=== PATIENT | female | born 1960 | race Caucasian/White ===

== ENCOUNTER 2023-01-25 20:44 | Emergency (ER) | payer MEDICAID ==
[~2023-01-25] VITALS: Ht 172.7 cm; Wt 108.9 kg
[2023-01-25 20:52] VITALS: BP 150/99
--- NOTE | 2023-01-25 20:55 | NUR ---
COVID-19 and flu swabs collected and sent to lab.
--- NOTE | 2023-01-25 21:19 | NUR ---
Patient taken to X-ray via WC.
--- NOTE | 2023-01-25 22:06 | NUR ---
Dr. Pratt examining patient.
[2023-01-25] MEDS ORDERED: LEVALBUTEROL 1.25 MG/0.5 ML NEBU INH ONE ×5 (22:10→23:00)
--- NOTE | 2023-01-25 22:30 | NUR ---
RT at chair C for breathing treatment.
[2023-01-25] MEDS ORDERED: ALBU0.0912 INH (22:45)
[2023-01-25] MEDS ORDERED: PRON INH (22:45)
[2023-01-25] MEDS ORDERED: ROBAC PO (22:45)
[2023-01-25] MEDS ORDERED: DOXY-690 PO (22:47)
[2023-01-25] MEDS ORDERED: guaiFENesin 600 MG TABER PO SCH (23:00)
[2023-01-25 23:45] VITALS: BP 144/90
--- NOTE | 2023-01-25 23:45 | NUR ---
Patient discharged with v/s stable. Written and verbal after care instructions given and explained. Patient alert, oriented and verbalized understanding of instructions. Wheel Chair Assisted with to car. All questions addressed prior to discharge. ID band removed. Patient advised to follow up with PMD. Rx of Proventil HFA, Doxycycline, Albuterol and Guaifenesi-Codeine given. Patient educated on indication of medication including possible reaction and side effects. Opportunity to ask questions provided and answered.
== END 2023-01-25 23:45 | disposition home or self-care (01) ==
LOC: MED 20:44
DX: J40 Bronchitis, not specified as acute or chronic (principal); Z20.822 Contact with and (suspected) exposure to COVID-19; I10 Essential (primary) hypertension; Z79.899 Other long term (current) drug therapy
CPT/HCPCS: 71045; 87426; 87804; 94640; 99285; J7612; Q0092

== ENCOUNTER 2023-10-27 14:52 | Inpatient (IN) | payer MEDICAID ==
[~2023-10-27] VITALS: Ht 165.1 cm
[~2023-10-27 14:52] MED LIST: ALBU0.0912 INH; DOXY-690 PO; PRON INH; ROBAC PO
[2023-10-27 14:55] VITALS: BP 138/94; PULSE 120; RESP 24; TEMP 98.1; O2SAT 98
[2023-10-27] MEDS ORDERED: NACL 0.9% 1,000 ML IV ONE (15:30)
[2023-10-27] MEDS ORDERED: IPRATROPIUM 0.02% 0.5 MG/2.5 ML NEBU INH ONE (15:35)
[2023-10-27] MEDS ORDERED: ALBUTEROL 0.083% 2.5 MG/3 ML NEBU INH ONE (15:35)
[2023-10-27 15:41] VITALS: PULSE 129; RESP 24; O2SAT 95
[2023-10-27 16:45] LABS: BASOPHILS % (AUTO) 0.2 % (0.0-2.0); EOSINOPHILS % (AUTO) 0.1 % (0.0-4.0); HEMATOCRIT 39.7 % (36-48); LYMPHOCYTES # (AUTO) 0.4 K/uL (2.5-16.5); LYMPHOCYTES % (AUTO) 2.4 % (20.5-51.1); MEAN CORPUSCULAR HEMOGLOBIN 28 pg (27-31); MEAN CORPUSCULAR HGB CONC 33 g/dL (33-37); MEAN CORPUSCULAR VOLUME 84.4 fL (80-94); MONOCYTES # (AUTO) 0.7 K/uL (0.8-1.0); MONOCYTES % (AUTO) 4.3 % (1.7-9.3); NEUTROPHILS # (AUTO) 14.4 K/uL (1.8-7.7); PLATELET COUNT (AUTO) 360 K/uL (140-450); RED BLOOD CELL COUNT(AUTO) 4.71 MIL/uL (4.20-5.40); RED CELL DISTRIBUTION WIDTH 14.2 % (11.6-13.7); WHITE BLOOD COUNT (AUTO) 15.5 K/uL (4.8-10.8)
[2023-10-27] MEDS ORDERED: PIPERACILLIN/TAZOBACTAM 3.375 GM in DEXTROSE 5% 50 ML IV ONE (16:50)
[2023-10-27 17:08] LABS: CREATINE KINASE, TOTAL 307 U/L (26-192); LACTIC ACID 0.4 mmol/L (0.4-2.0)
[2023-10-27] MEDS ORDERED: FUROSEMIDE 40 MG/4 ML VIAL IVP SCH (17:15)
[2023-10-27 17:17] LABS: ALBUMIN 2.9 g/dL (3.4-5.0); ANION GAP 5.7 (8-16); CALCIUM 9.5 mg/dL (8.5-10.1); CARBON DIOXIDE 40.7 mmol/L (21-32); CREATININE 0.4 mg/dL (0.6-1.3); POTASSIUM 3.4 mmol/L (3.5-5.1); TOTAL BILIRUBIN 0.5 mg/dL (0.0-1.0); TOTAL PROTEIN, SERUM 8.1 g/dL (6.4-8.2)
[2023-10-27] MEDS ORDERED: PIPERACILLIN/TAZOBACTAM 3.375 GM VIAL IV ONE (18:26)
[2023-10-27] MEDS ORDERED: LORazepam 0.5 MG TAB PO ONE (18:45)
[2023-10-27] MEDS ORDERED: LORazepam 2 MG/ML VIAL IVP ONE (18:50)
[2023-10-27 19:56] VITALS: O2SAT 98
[2023-10-27 19:57] VITALS: BP 123/80; PULSE 122; O2SAT 99
[2023-10-27 20:06] LABS: APPEARANCE,URINE CLEAR (CLEAR); BILIRUBIN,URINE NEGATIVE (NEGATIVE); BLOOD, URINE NEGATIVE (NEGATIVE); COLOR,URINE YELLOW (YELLOW); LEUKOCYTE ESTERASE ,URINE NEGATIVE (NEGATIVE); NITRITE, URINE NEGATIVE (NEGATIVE); PROTEIN,URINE NEGATIVE (NEGATIVE); UGLUCOSE NEGATIVE (NEGATIVE)
[2023-10-27 21:11] LABS: FLU A ANTIGEN negative (NEGATIVE); FLU B ANTIGEN NEGATIVE (NEGATIVE)
[2023-10-27] MEDS ORDERED: IBUP-2213 PO (21:15)
[2023-10-27] MEDS ORDERED: CEFP200T20 PO (21:15)
[2023-10-27] MEDS ORDERED: METH-1681 PO (21:15)
[2023-10-27] MEDS ORDERED: POTASSIUM CHLORIDE 10 MEQ TABER PO PRN (23:05)
[2023-10-27] MEDS ORDERED: HYDROcodone/APAP 5/325 MG 1 TAB TAB PO PRN (23:05)
[2023-10-27] MEDS ORDERED: MAG SULF 2000 MG/WATER PREMIX 50 ML IV PRN (23:05)
[2023-10-28] VITALS (9 sets, daily range): BP systolic 105–137; BP diastolic 66–79; PULSE 110–132; RESP 16–28; TEMP 97–97.7; O2SAT 89–100
[2023-10-28] MEDS ORDERED: PIPERACILLIN/TAZOBACTAM 3.375 GM in DEXTROSE 5% 50 ML IV SCH ×2
[2023-10-28] MEDS ORDERED: ACETYLCYSTEINE 20% (200 MG/ML) 200 MG/ML VIAL INH ONE
[2023-10-28] MEDS: PIPERACILLIN/TAZOBACTAM 3.375 GM in DEXTROSE 5% 50 ML IV SCH ×5 (00:05→23:53)
[2023-10-28] MEDS ORDERED: PIPERACILLIN/TAZOBACTAM 3.375 GM VIAL IV ONE ×2 (00:21→06:03)
[2023-10-28 06:45] LABS: BASOPHILS % (AUTO) 0.2 % (0.0-2.0); EOSINOPHILS % (AUTO) 0.1 % (0.0-4.0); HEMATOCRIT 36.5 % (36-48); HEMOGLOBIN 11.7 g/dL (12.0-16.0); LYMPHOCYTES # (AUTO) 0.5 K/uL (2.5-16.5); LYMPHOCYTES % (AUTO) 3.6 % (20.5-51.1); MEAN CORPUSCULAR HEMOGLOBIN 27 pg (27-31); MEAN CORPUSCULAR HGB CONC 32 g/dL (33-37); MEAN CORPUSCULAR VOLUME 85.1 fL (80-94); MONOCYTES # (AUTO) 0.9 K/uL (0.8-1.0); MONOCYTES % (AUTO) 6.9 % (1.7-9.3); NEUTROPHILS # (AUTO) 11.5 K/uL (1.8-7.7); NEUTROPHILS % (AUTO) 89.2 % (42.2-75.2); PLATELET COUNT (AUTO) 335 K/uL (140-450); RED BLOOD CELL COUNT(AUTO) 4.29 MIL/uL (4.20-5.40); RED CELL DISTRIBUTION WIDTH 13.7 % (11.6-13.7); WHITE BLOOD COUNT (AUTO) 12.9 K/uL (4.8-10.8)
[2023-10-28] MEDS: ALBUTEROL SULFATE/IPRATROPIU 3 ML SOL IH SCH ×3 (07:25→20:47)
[2023-10-28 07:26] LABS: ALBUMIN 2.5 g/dL (3.4-5.0); ANION GAP 8.1 (8-16); CALCIUM 9.1 mg/dL (8.5-10.1); CREATININE 0.4 mg/dL (0.6-1.3); MAGNESIUM 1.7 mg/dL (1.8-2.4); POTASSIUM 3.3 mmol/L (3.5-5.1); TOTAL BILIRUBIN 0.5 mg/dL (0.0-1.0); TOTAL PROTEIN, SERUM 7.3 g/dL (6.4-8.2)
[2023-10-28 07:34] LABS: CARBON DIOXIDE 42.2 mmol/L (21-32)
[2023-10-28] MEDS: FAMOTIDINE 20 MG/2 ML VIAL IV SCH ×2 (09:39→20:43)
[2023-10-28] MEDS: MORPHINE SULFATE 4 MG/ML SYR IVP PRN (09:41)
[2023-10-28] MEDS ORDERED: LORazepam 2 MG/ML VIAL IVP PRN (11:35)
[2023-10-28] MEDS ORDERED: CRUSHER, PILL MC ONE (11:40)
[2023-10-28] MEDS ORDERED: POTASSIUM CHLORIDE 20% 40 MEQ/15 ML UDC PO SCH (12:00)
[2023-10-28] MEDS: MAGNESIUM OXIDE 400 MG TAB PO PRN (15:28)
[2023-10-28] MEDS: DEXT 5% /NACL 0.9% 1,000 ML IV SCH (16:38)
[2023-10-28] MEDS: LORazepam 0.5 MG TAB PO PRN (23:32)
[2023-10-29] VITALS (15 sets, daily range): BP systolic 102–127; BP diastolic 70–89; PULSE 110–132; RESP 18–34; TEMP 96.7–98.2; O2SAT 94–100
[2023-10-29] MEDS: MORPHINE SULFATE 4 MG/ML SYR IVP PRN (00:17)
[2023-10-29] MEDS: ALBUTEROL SULFATE/IPRATROPIU 3 ML SOL IH SCH ×4 (02:17→19:45)
[2023-10-29] MEDS: DEXT 5% /NACL 0.9% 1,000 ML IV SCH (05:10)
[2023-10-29] MEDS: PIPERACILLIN/TAZOBACTAM 3.375 GM in DEXTROSE 5% 50 ML IV SCH ×4 (05:14→23:16)
[2023-10-29 05:55] LABS: BASOPHILS # (AUTO) 0.1 K/uL (0.00-0.22); BASOPHILS % (AUTO) 0.5 % (0.0-2.0); EOSINOPHILS % (AUTO) 0.1 % (0.0-4.0); HEMATOCRIT 41.3 % (36-48); HEMOGLOBIN 13.4 g/dL (12.0-16.0); LYMPHOCYTES # (AUTO) 0.1 K/uL (2.5-16.5); LYMPHOCYTES % (AUTO) 0.7 % (20.5-51.1); MEAN CORPUSCULAR HEMOGLOBIN 28 pg (27-31); MEAN CORPUSCULAR HGB CONC 33 g/dL (33-37); MONOCYTES # (AUTO) 0.6 K/uL (0.8-1.0); MONOCYTES % (AUTO) 3.5 % (1.7-9.3); NEUTROPHILS % (AUTO) 95.2 % (42.2-75.2); PLATELET COUNT (AUTO) 405 K/uL (140-450); RED CELL DISTRIBUTION WIDTH 13.7 % (11.6-13.7); WHITE BLOOD COUNT (AUTO) 17.8 K/uL (4.8-10.8)
[2023-10-29 06:48] LABS: ALBUMIN 2.7 g/dL (3.4-5.0); ANION GAP 10.9 (8-16); CALCIUM 9.8 mg/dL (8.5-10.1); CREATININE 0.6 mg/dL (0.6-1.3); POTASSIUM 4.1 mmol/L (3.5-5.1); TOTAL BILIRUBIN 0.6 mg/dL (0.0-1.0); TOTAL PROTEIN, SERUM 8.3 g/dL (6.4-8.2)
[2023-10-29 06:52] LABS: CARBON DIOXIDE 40.2 mmol/L (21-32)
[2023-10-29] MEDS: FAMOTIDINE 20 MG/2 ML VIAL IV SCH ×2 (09:33→21:10)
[2023-10-29] MEDS ORDERED: FOAM DRESSING TP PRN (10:40)
[2023-10-29] MEDS ORDERED: THERAHONEY GEL 42.5 GM TP PRN (10:40)
[2023-10-29] MEDS: FOAM DRESSING TP SCH (12:08)
[2023-10-29] MEDS: HYDRAGUARD CREAM TP SCH (12:09)
[2023-10-29] MEDS: THERAHONEY GEL 42.5 GM TP SCH (12:09)
[2023-10-29] MEDS ORDERED: FUROSEMIDE 40 MG/4 ML VIAL IVP SCH (14:19)
[2023-10-29] MEDS ORDERED: VANCOMYCIN PER PHARMACY MC PRN (14:45)
[2023-10-29] MEDS: VANCOMYCIN 750 MG in DEXTROSE 5% 250 ML IV SCH (16:00)
[2023-10-29] MEDS: FUROSEMIDE 20 MG/2 ML VIAL IVP SCH (21:09)
[2023-10-29] MEDS: acetaZOLAMIDE sodium 250 MG in NACL 0.9% 50 ML IV SCH (21:40)
[2023-10-30] VITALS (13 sets, daily range): BP systolic 104–110; BP diastolic 69–78; PULSE 29–135; RESP 18–38; TEMP 97.1–98; O2SAT 94–100
[2023-10-30] MEDS: HYDRAGUARD CREAM TP SCH ×2 (01:49→13:00)
[2023-10-30] MEDS: ALBUTEROL SULFATE/IPRATROPIU 3 ML SOL IH SCH ×4 (02:27→19:23)
[2023-10-30] MEDS: VANCOMYCIN 750 MG in DEXTROSE 5% 250 ML IV SCH ×2 (03:53→16:45)
[2023-10-30] MEDS: acetaZOLAMIDE sodium 250 MG in NACL 0.9% 50 ML IV SCH ×3 (05:21→20:35)
[2023-10-30] MEDS: PIPERACILLIN/TAZOBACTAM 3.375 GM in DEXTROSE 5% 50 ML IV SCH ×4 (06:16→23:50)
[2023-10-30 07:23] LABS: HEMATOCRIT 39.5 % (36-48); HEMOGLOBIN 12.2 g/dL (12.0-16.0); MEAN CORPUSCULAR HEMOGLOBIN 27 pg (27-31); MEAN CORPUSCULAR HGB CONC 31 g/dL (33-37); MEAN CORPUSCULAR VOLUME 87.6 fL (80-94); PLATELET COUNT (AUTO) 340 K/uL (140-450); RED BLOOD CELL COUNT(AUTO) 4.51 MIL/uL (4.20-5.40); RED CELL DISTRIBUTION WIDTH 13.9 % (11.6-13.7); WHITE BLOOD COUNT (AUTO) 24.8 K/uL (4.8-10.8)
[2023-10-30] MEDS: FAMOTIDINE 20 MG/2 ML VIAL IV SCH ×2 (08:31→20:34)
[2023-10-30] MEDS: FUROSEMIDE 20 MG/2 ML VIAL IVP SCH ×2 (08:31→20:34)
[2023-10-30 08:43] LABS: ALBUMIN 2.4 g/dL (3.4-5.0); CALCIUM 9.4 mg/dL (8.5-10.1); CREATININE 0.6 mg/dL (0.6-1.3); MAGNESIUM 1.8 mg/dL (1.8-2.4); TOTAL BILIRUBIN 0.5 mg/dL (0.0-1.0); TOTAL PROTEIN, SERUM 7.8 g/dL (6.4-8.2)
[2023-10-30 08:46] LABS: ANION GAP 6.6 (8-16); CARBON DIOXIDE 47.1 mmol/L (21-32); POTASSIUM 2.7 mmol/L (3.5-5.1)
[2023-10-30 08:51] LABS: BASOPHILS % (MANUAL) 0 % (0-2); BLASTS, MANUAL % 0 % (0-0); EOSINOPHILS % (MANUAL) 0 % (0-4); LYMPHOCYTES % (MANUAL) 3 % (20-46); METAMYELOCYTES % 0 % (0-0); MONOCYTES % (MANUAL) 3 % (5-12); MYELOCYTES % 0 % (0-0); OTHER CELLS,MANUAL % 0 (0-0); PROMYELOCYTES % 0 % (0-0)
[2023-10-30 08:52] LABS: PLATELET ESTIMATE ADEQUATE
[2023-10-30] MEDS: LORazepam 0.5 MG TAB PO PRN ×2 (10:00→21:32)
[2023-10-30] MEDS: KCL 20 MEQ IN 100 mL PREMIX 200 ML IV PRN (10:41)
[2023-10-30] MEDS: FOAM DRESSING TP SCH (13:00)
[2023-10-30] MEDS: THERAHONEY GEL 42.5 GM TP SCH (13:00)
[2023-10-31] VITALS (11 sets, daily range): BP systolic 108–129; BP diastolic 66–93; PULSE 110–129; RESP 24–39; TEMP 97.1–98.6; O2SAT 95–100
[2023-10-31] MEDS: HYDRAGUARD CREAM TP SCH ×2 (01:10→13:29)
[2023-10-31] MEDS: ALBUTEROL SULFATE/IPRATROPIU 3 ML SOL IH SCH ×4 (01:19→19:45)
[2023-10-31] MEDS: VANCOMYCIN 750 MG in DEXTROSE 5% 250 ML IV SCH ×2 (04:17→16:36)
[2023-10-31 04:51] LABS: BASOPHILS # (AUTO) 0.3 K/uL (0.00-0.22); BASOPHILS % (AUTO) 1.1 % (0.0-2.0); EOSINOPHILS # (AUTO) 0.5 K/uL (0-0.4); EOSINOPHILS % (AUTO) 1.9 % (0.0-4.0); HEMATOCRIT 39.3 % (36-48); HEMOGLOBIN 12.3 g/dL (12.0-16.0); LYMPHOCYTES # (AUTO) 0.2 K/uL (2.5-16.5); MEAN CORPUSCULAR HEMOGLOBIN 27 pg (27-31); MEAN CORPUSCULAR HGB CONC 31 g/dL (33-37); MEAN CORPUSCULAR VOLUME 86.8 fL (80-94); MONOCYTES # (AUTO) 0.9 K/uL (0.8-1.0); MONOCYTES % (AUTO) 3.8 % (1.7-9.3); NEUTROPHILS # (AUTO) 22.2 K/uL (1.8-7.7); PLATELET COUNT (AUTO) 301 K/uL (140-450); RED BLOOD CELL COUNT(AUTO) 4.53 MIL/uL (4.20-5.40); WHITE BLOOD COUNT (AUTO) 24.1 K/uL (4.8-10.8)
[2023-10-31] MEDS: acetaZOLAMIDE sodium 250 MG in NACL 0.9% 50 ML IV SCH ×3 (05:21→20:23)
[2023-10-31 05:27] LABS: NEUTROPHILS % (AUTO) 92.2 % (42.2-75.2)
[2023-10-31 05:31] LABS: ALBUMIN 2.4 g/dL (3.4-5.0); CALCIUM 9.6 mg/dL (8.5-10.1); CARBON DIOXIDE 40.6 mmol/L (21-32); CREATININE 0.6 mg/dL (0.6-1.3); MAGNESIUM 1.8 mg/dL (1.8-2.4); TOTAL BILIRUBIN 0.6 mg/dL (0.0-1.0); TOTAL PROTEIN, SERUM 7.7 g/dL (6.4-8.2)
[2023-10-31 05:38] LABS: POTASSIUM 2.6 mmol/L (3.5-5.1)
[2023-10-31] MEDS: PIPERACILLIN/TAZOBACTAM 3.375 GM in DEXTROSE 5% 50 ML IV SCH ×3 (05:59→18:45)
[2023-10-31] MEDS: KCL 20 MEQ IN 100 mL PREMIX 200 ML IV PRN (06:27)
[2023-10-31] MEDS: FAMOTIDINE 20 MG/2 ML VIAL IV SCH ×2 (09:31→20:22)
[2023-10-31] MEDS: FUROSEMIDE 20 MG/2 ML VIAL IVP SCH ×2 (09:32→20:22)
[2023-10-31] MEDS: LORazepam 0.5 MG TAB PO PRN (12:19)
[2023-10-31] MEDS: FOAM DRESSING TP SCH (13:29)
[2023-10-31] MEDS: THERAHONEY GEL 42.5 GM TP SCH (13:29)
[2023-11-01] VITALS (15 sets, daily range): BP systolic 90–113; BP diastolic 61–70; PULSE 110–126; RESP 21–42; TEMP 96.7–98.8; O2SAT 96–99
[2023-11-01] MEDS: PIPERACILLIN/TAZOBACTAM 3.375 GM in DEXTROSE 5% 50 ML IV SCH ×4 (00:26→23:30)
[2023-11-01] MEDS: ALBUTEROL SULFATE/IPRATROPIU 3 ML SOL IH SCH ×4 (00:30→19:08)
[2023-11-01] MEDS: HYDRAGUARD CREAM TP SCH ×2 (01:00→13:53)
[2023-11-01] MEDS: VANCOMYCIN 750 MG in DEXTROSE 5% 250 ML IV SCH ×2 (03:30→16:44)
[2023-11-01] MEDS: LORazepam 0.5 MG TAB PO PRN (05:12)
[2023-11-01 05:43] LABS: HEMATOCRIT 38.5 % (36-48); HEMOGLOBIN 12.6 g/dL (12.0-16.0); MEAN CORPUSCULAR HEMOGLOBIN 28 pg (27-31); MEAN CORPUSCULAR HGB CONC 33 g/dL (33-37); MEAN CORPUSCULAR VOLUME 84.8 fL (80-94); PLATELET COUNT (AUTO) 304 K/uL (140-450); RED BLOOD CELL COUNT(AUTO) 4.54 MIL/uL (4.20-5.40); RED CELL DISTRIBUTION WIDTH 14.1 % (11.6-13.7); WHITE BLOOD COUNT (AUTO) 23.7 K/uL (4.8-10.8)
[2023-11-01 06:19] LABS: ALBUMIN 2.1 g/dL (3.4-5.0); ANION GAP 7.6 (8-16); CALCIUM 9.1 mg/dL (8.5-10.1); CARBON DIOXIDE 39.8 mmol/L (21-32); CREATININE 0.7 mg/dL (0.6-1.3); MAGNESIUM 1.7 mg/dL (1.8-2.4); TOTAL BILIRUBIN 0.6 mg/dL (0.0-1.0); TOTAL PROTEIN, SERUM 7.2 g/dL (6.4-8.2)
[2023-11-01 06:28] LABS: POTASSIUM 2.4 mmol/L (3.5-5.1)
[2023-11-01] MEDS: KCL 20 MEQ IN 100 mL PREMIX 200 ML IV PRN (06:47)
[2023-11-01 06:48] LABS: EOSINOPHILS % (MANUAL) 2 % (0-4); LYMPHOCYTES % (MANUAL) 1 % (20-46); MONOCYTES % (MANUAL) 2 % (5-12)
[2023-11-01] MEDS: FUROSEMIDE 20 MG/2 ML VIAL IVP SCH ×2 (09:45→20:50)
[2023-11-01] MEDS: FAMOTIDINE 20 MG/2 ML VIAL IV SCH ×2 (09:45→20:35)
[2023-11-01] MEDS: THERAHONEY GEL 42.5 GM TP SCH (13:00)
[2023-11-01] MEDS: FOAM DRESSING TP SCH (13:52)
[2023-11-01] MEDS: POTASSIUM CHLORIDE 40 MEQ, LIDOCAINE 1% 25 MG in NACL 0.9% 250 ML IV SCH ×2 (13:56→16:52)
[2023-11-01] MEDS: MAGNESIUM OXIDE 400 MG TAB PO PRN (19:04)
[2023-11-01] MEDS: HYDROXYZINE HYDROCHLORIDE 25 MG TAB PO PRN (19:04)
[2023-11-02] VITALS (15 sets, daily range): BP systolic 90–117; BP diastolic 60–73; PULSE 112–130; RESP 22–49; TEMP 97.2–98.9; O2SAT 94–100
[2023-11-02] MEDS: HYDRAGUARD CREAM TP SCH ×2 (01:18→13:43)
[2023-11-02] MEDS: ALBUTEROL SULFATE/IPRATROPIU 3 ML SOL IH SCH ×3 (01:21→19:55)
[2023-11-02] MEDS: VANCOMYCIN 750 MG in DEXTROSE 5% 250 ML IV SCH (03:59)
[2023-11-02] MEDS: PIPERACILLIN/TAZOBACTAM 3.375 GM in DEXTROSE 5% 50 ML IV SCH ×3 (05:49→18:42)
[2023-11-02] MEDS: FUROSEMIDE 20 MG/2 ML VIAL IVP SCH ×2 (08:38→21:00)
[2023-11-02] MEDS: HYDROXYZINE HYDROCHLORIDE 25 MG TAB PO PRN (08:38)
[2023-11-02] MEDS: FAMOTIDINE 20 MG/2 ML VIAL IV SCH ×2 (08:38→21:45)
[2023-11-02 09:50] LABS: HEMATOCRIT 41.3 % (36-48); HEMOGLOBIN 13.2 g/dL (12.0-16.0); MEAN CORPUSCULAR HEMOGLOBIN 27 pg (27-31); MEAN CORPUSCULAR HGB CONC 32 g/dL (33-37); MEAN CORPUSCULAR VOLUME 84.9 fL (80-94); PLATELET COUNT (AUTO) 322 K/uL (140-450); RED BLOOD CELL COUNT(AUTO) 4.87 MIL/uL (4.20-5.40); RED CELL DISTRIBUTION WIDTH 14.5 % (11.6-13.7)
[2023-11-02 10:15] LABS: ANION GAP 8.5 (8-16); CARBON DIOXIDE 37.2 mmol/L (21-32); CREATININE 1.4 mg/dL (0.6-1.3); POTASSIUM 3.7 mmol/L (3.5-5.1); TOTAL BILIRUBIN 0.5 mg/dL (0.0-1.0); TOTAL PROTEIN, SERUM 7.2 g/dL (6.4-8.2)
[2023-11-02 10:19] LABS: EOSINOPHILS % (MANUAL) 3 % (0-4); LYMPHOCYTES % (MANUAL) 2 % (20-46); MONOCYTES % (MANUAL) 2 % (5-12)
[2023-11-02] MEDS: methylPREDNISolone SS 125 MG/2 ML VIAL IVP SCH ×2 (12:22→21:45)
[2023-11-02] MEDS: THERAHONEY GEL 42.5 GM TP SCH (13:43)
[2023-11-02] MEDS: metroNIDAZOLE 500 MG/NS PREMIX 100 ML IV SCH ×2 (13:43→21:44)
[2023-11-02] MEDS: FOAM DRESSING TP SCH (13:43)
[2023-11-02] MEDS: LORazepam 0.5 MG TAB PO PRN (18:52)
[2023-11-03] VITALS (12 sets, daily range): BP systolic 88–106; BP diastolic 55–80; PULSE 91–117; RESP 21–33; TEMP 98–98.9; O2SAT 96–99
[2023-11-03] MEDS: PIPERACILLIN/TAZOBACTAM 3.375 GM in DEXTROSE 5% 50 ML IV SCH ×5 (00:38→23:19)
[2023-11-03] MEDS ORDERED: MIDODRINE 5 MG TAB PO SCH (01:20)
[2023-11-03] MEDS: ALBUTEROL SULFATE/IPRATROPIU 3 ML SOL IH SCH ×3 (02:10→14:51)
[2023-11-03] MEDS: HYDROXYZINE HYDROCHLORIDE 25 MG TAB PO PRN ×2 (05:51→21:50)
[2023-11-03] MEDS: metroNIDAZOLE 500 MG/NS PREMIX 100 ML IV SCH ×3 (05:51→21:07)
[2023-11-03] MEDS: HYDRAGUARD CREAM TP SCH ×2 (05:52→12:37)
[2023-11-03 06:03] LABS: ANION GAP 8.6 (8-16); CALCIUM 8.9 mg/dL (8.5-10.1); CARBON DIOXIDE 34.8 mmol/L (21-32); CREATININE 1.5 mg/dL (0.6-1.3); POTASSIUM 3.4 mmol/L (3.5-5.1)
[2023-11-03] MEDS: methylPREDNISolone SS 125 MG/2 ML VIAL IVP SCH ×2 (10:02→21:11)
[2023-11-03] MEDS: FAMOTIDINE 20 MG/2 ML VIAL IV SCH ×2 (10:02→21:15)
[2023-11-03] MEDS: FUROSEMIDE 20 MG/2 ML VIAL IVP SCH ×2 (10:03→21:15)
[2023-11-03] MEDS: MIDODRINE 5 MG TAB GT SCH ×3 (10:03→17:57)
[2023-11-03] MEDS: FOAM DRESSING TP SCH (12:30)
[2023-11-03] MEDS: THERAHONEY GEL 42.5 GM TP SCH (12:38)
[2023-11-04] VITALS (10 sets, daily range): BP systolic 93–113; BP diastolic 57–75; PULSE 80–103; RESP 20–38; TEMP 98–99.5; O2SAT 97–99
[2023-11-04] MEDS: HYDRAGUARD CREAM TP SCH ×2 (01:59→13:36)
[2023-11-04] MEDS: metroNIDAZOLE 500 MG/NS PREMIX 100 ML IV SCH ×3 (04:55→21:11)
[2023-11-04] MEDS: PIPERACILLIN/TAZOBACTAM 3.375 GM in DEXTROSE 5% 50 ML IV SCH ×4 (05:03→23:44)
[2023-11-04] MEDS: HYDROXYZINE HYDROCHLORIDE 25 MG TAB PO PRN (09:48)
[2023-11-04] MEDS: FUROSEMIDE 20 MG/2 ML VIAL IVP SCH ×2 (09:49→21:15)
[2023-11-04] MEDS: FAMOTIDINE 20 MG/2 ML VIAL IV SCH ×2 (09:49→21:16)
[2023-11-04] MEDS: methylPREDNISolone SS 125 MG/2 ML VIAL IVP SCH ×2 (09:49→21:17)
[2023-11-04] MEDS: MIDODRINE 5 MG TAB GT SCH ×3 (09:51→17:24)
[2023-11-04] MEDS: FOAM DRESSING TP SCH (13:35)
[2023-11-04] MEDS: THERAHONEY GEL 42.5 GM TP SCH (13:36)
[2023-11-04] MEDS: ALBUTEROL SULFATE/IPRATROPIU 3 ML SOL IH SCH ×2 (20:39→20:40)
[2023-11-04] MEDS: ACETAMINOPHEN 325 MG TAB PO PRN (21:31)
[2023-11-05] VITALS (13 sets, daily range): BP systolic 110–120; BP diastolic 70–91; PULSE 70–113; RESP 17–32; TEMP 96.3–98.7; O2SAT 95–100
[2023-11-05] MEDS: ALBUTEROL SULFATE/IPRATROPIU 3 ML SOL IH SCH ×4 (00:42→19:04)
[2023-11-05] MEDS: HYDRAGUARD CREAM TP SCH ×2 (01:00→13:48)
[2023-11-05] MEDS: metroNIDAZOLE 500 MG/NS PREMIX 100 ML IV SCH ×3 (04:41→20:55)
[2023-11-05] MEDS: PIPERACILLIN/TAZOBACTAM 3.375 GM in DEXTROSE 5% 50 ML IV SCH ×4 (06:05→23:34)
[2023-11-05] MEDS: FUROSEMIDE 20 MG/2 ML VIAL IVP SCH ×2 (08:57→20:59)
[2023-11-05] MEDS: FAMOTIDINE 20 MG/2 ML VIAL IV SCH ×2 (08:57→20:59)
[2023-11-05] MEDS: methylPREDNISolone SS 125 MG/2 ML VIAL IVP SCH ×2 (08:58→20:59)
[2023-11-05] MEDS: MIDODRINE 5 MG TAB GT SCH ×3 (09:00→17:00)
[2023-11-05] MEDS: HYDROXYZINE HYDROCHLORIDE 25 MG TAB PO PRN (09:09)
[2023-11-05] MEDS: FOAM DRESSING TP SCH (13:44)
[2023-11-05] MEDS: THERAHONEY GEL 42.5 GM TP SCH (13:44)
[2023-11-06] VITALS (14 sets, daily range): BP systolic 106–117; BP diastolic 68–82; PULSE 95–115; RESP 14–29; TEMP 96.7–97.7; O2SAT 96–100
[2023-11-06] MEDS: HYDRAGUARD CREAM TP SCH ×2 (01:41→13:38)
[2023-11-06] MEDS: ALBUTEROL SULFATE/IPRATROPIU 3 ML SOL IH SCH ×4 (01:46→19:13)
[2023-11-06] MEDS: metroNIDAZOLE 500 MG/NS PREMIX 100 ML IV SCH ×3 (04:59→21:18)
[2023-11-06] MEDS: MIDODRINE 5 MG TAB GT SCH ×3 (09:00→17:22)
[2023-11-06] MEDS: FAMOTIDINE 20 MG/2 ML VIAL IV SCH ×2 (09:26→09:36)
[2023-11-06] MEDS: methylPREDNISolone SS 125 MG/2 ML VIAL IVP SCH ×2 (09:26→21:18)
[2023-11-06] MEDS: FUROSEMIDE 20 MG/2 ML VIAL IVP SCH ×2 (09:38→21:18)
[2023-11-06] MEDS ORDERED: KCL 20 MEQ IN 100 mL PREMIX 100 ML IV ONE (09:40)
[2023-11-06 10:55] LABS: EOSINOPHILS # (AUTO) 0.8 K/uL (0-0.4); EOSINOPHILS % (AUTO) 3.6 % (0.0-4.0); HEMATOCRIT 40.7 % (36-48); HEMOGLOBIN 12.9 g/dL (12.0-16.0); LYMPHOCYTES # (AUTO) 0.4 K/uL (2.5-16.5); MEAN CORPUSCULAR HEMOGLOBIN 27 pg (27-31); MEAN CORPUSCULAR HGB CONC 32 g/dL (33-37); MEAN CORPUSCULAR VOLUME 85.8 fL (80-94); MONOCYTES # (AUTO) 1.3 K/uL (0.8-1.0); MONOCYTES % (AUTO) 5.7 % (1.7-9.3); NEUTROPHILS # (AUTO) 20.1 K/uL (1.8-7.7); NEUTROPHILS % (AUTO) 88.7 % (42.2-75.2); PLATELET COUNT (AUTO) 312 K/uL (140-450); RED BLOOD CELL COUNT(AUTO) 4.75 MIL/uL (4.20-5.40); RED CELL DISTRIBUTION WIDTH 14.9 % (11.6-13.7); WHITE BLOOD COUNT (AUTO) 22.7 K/uL (4.8-10.8)
[2023-11-06 11:06] LABS: ANION GAP 4.3 (8-16); CALCIUM 8.6 mg/dL (8.5-10.1); CREATININE 1.7 mg/dL (0.6-1.3); POTASSIUM 3.3 mmol/L (3.5-5.1)
[2023-11-06] MEDS: CEFEPIME 1,000 MG in DEXTROSE 5% 50 ML IV SCH ×2 (11:29→22:25)
[2023-11-06] MEDS: FOAM DRESSING TP SCH (13:38)
[2023-11-06] MEDS: THERAHONEY GEL 42.5 GM TP SCH (13:39)
[2023-11-06] MEDS ORDERED: POTASSIUM CHLORIDE 20% 40 MEQ/15 ML UDC GT PRN (15:40)
[2023-11-06] MEDS: LORazepam 0.5 MG TAB PO PRN (21:19)
[2023-11-07] VITALS (12 sets, daily range): BP systolic 102–123; BP diastolic 59–86; PULSE 104–121; RESP 14–29; TEMP 96.1–97.9; O2SAT 96–100
[2023-11-07] MEDS: ALBUTEROL SULFATE/IPRATROPIU 3 ML SOL IH SCH ×4 (00:40→19:58)
[2023-11-07] MEDS: HYDRAGUARD CREAM TP SCH ×2 (01:14→13:00)
[2023-11-07] MEDS: metroNIDAZOLE 500 MG/NS PREMIX 100 ML IV SCH ×3 (05:18→23:21)
[2023-11-07 06:24] LABS: ANION GAP 5.1 (8-16); CALCIUM 8.5 mg/dL (8.5-10.1); CARBON DIOXIDE 38.6 mmol/L (21-32); CREATININE 1.5 mg/dL (0.6-1.3); POTASSIUM 4.7 mmol/L (3.5-5.1)
[2023-11-07 06:27] LABS: MAGNESIUM 2.3 mg/dL (1.8-2.4); PHOSPHORUS 4.2 mg/dL (2.5-4.9)
[2023-11-07 08:13] LABS: BASOPHILS # (AUTO) 0.1 K/uL (0.00-0.22); BASOPHILS % (AUTO) 0.5 % (0.0-2.0); EOSINOPHILS # (AUTO) 0.2 K/uL (0-0.4); EOSINOPHILS % (AUTO) 1.3 % (0.0-4.0); HEMATOCRIT 39.1 % (36-48); HEMOGLOBIN 12.4 g/dL (12.0-16.0); LYMPHOCYTES # (AUTO) 0.7 K/uL (2.5-16.5); LYMPHOCYTES % (AUTO) 4.3 % (20.5-51.1); MEAN CORPUSCULAR HEMOGLOBIN 27 pg (27-31); MEAN CORPUSCULAR HGB CONC 32 g/dL (33-37); MEAN CORPUSCULAR VOLUME 84.9 fL (80-94); MONOCYTES # (AUTO) 0.8 K/uL (0.8-1.0); MONOCYTES % (AUTO) 4.8 % (1.7-9.3); NEUTROPHILS # (AUTO) 15.1 K/uL (1.8-7.7); NEUTROPHILS % (AUTO) 89.1 % (42.2-75.2); PLATELET COUNT (AUTO) 297 K/uL (140-450); RED BLOOD CELL COUNT(AUTO) 4.61 MIL/uL (4.20-5.40); RED CELL DISTRIBUTION WIDTH 14.8 % (11.6-13.7)
[2023-11-07 08:19] LABS: WHITE BLOOD COUNT (AUTO) 16.9 K/uL (4.8-10.8)
[2023-11-07] MEDS: MIDODRINE 5 MG TAB GT SCH ×3 (09:00→17:43)
[2023-11-07] MEDS: FUROSEMIDE 20 MG/2 ML VIAL IVP SCH ×2 (09:52→23:21)
[2023-11-07] MEDS: FAMOTIDINE 20 MG/2 ML VIAL IV SCH ×2 (09:52→23:21)
[2023-11-07] MEDS: methylPREDNISolone SS 125 MG/2 ML VIAL IVP SCH ×2 (10:00→23:21)
[2023-11-07] MEDS: CEFEPIME 1,000 MG in DEXTROSE 5% 50 ML IV SCH ×2 (10:00→23:22)
[2023-11-07] MEDS: LORazepam 0.5 MG TAB PO PRN (10:09)
[2023-11-07] MEDS: THERAHONEY GEL 42.5 GM TP SCH (13:00)
[2023-11-07] MEDS: FOAM DRESSING TP SCH (13:00)
[2023-11-07] MEDS: ONDANSETRON 4 MG/2 ML VIAL IVP PRN (13:03)
[2023-11-08] VITALS (8 sets, daily range): BP systolic 111–128; BP diastolic 48–88; PULSE 107–125; RESP 18–22; TEMP 97–98.5; O2SAT 95–100
[2023-11-08] MEDS: HYDRAGUARD CREAM TP SCH ×2 (01:04→15:00)
[2023-11-08] MEDS: ALBUTEROL SULFATE/IPRATROPIU 3 ML SOL IH SCH ×4 (01:38→19:42)
[2023-11-08] MEDS: LORazepam 0.5 MG TAB PO PRN ×2 (05:07→15:42)
[2023-11-08 07:02] LABS: HEMATOCRIT 40.9 % (36-48); HEMOGLOBIN 12.9 g/dL (12.0-16.0); MEAN CORPUSCULAR HEMOGLOBIN 27 pg (27-31); MEAN CORPUSCULAR HGB CONC 32 g/dL (33-37); MEAN CORPUSCULAR VOLUME 85.9 fL (80-94); PLATELET COUNT (AUTO) 314 K/uL (140-450); RED BLOOD CELL COUNT(AUTO) 4.76 MIL/uL (4.20-5.40); RED CELL DISTRIBUTION WIDTH 15.2 % (11.6-13.7); WHITE BLOOD COUNT (AUTO) 13.5 K/uL (4.8-10.8)
[2023-11-08 07:07] LABS: ANION GAP 5.7 (8-16); CALCIUM 8.8 mg/dL (8.5-10.1); CREATININE 1.4 mg/dL (0.6-1.3); POTASSIUM 5.1 mmol/L (3.5-5.1)
[2023-11-08] MEDS: metroNIDAZOLE 500 MG/NS PREMIX 100 ML IV SCH ×3 (07:07→20:59)
[2023-11-08 07:17] LABS: MAGNESIUM 2.6 mg/dL (1.8-2.4); PHOSPHORUS 4.5 mg/dL (2.5-4.9)
[2023-11-08 07:20] LABS: CARBON DIOXIDE 41.4 mmol/L (21-32)
[2023-11-08 07:47] LABS: EOSINOPHILS % (MANUAL) 2 % (0-4); LYMPHOCYTES % (MANUAL) 3 % (20-46); MONOCYTES % (MANUAL) 5 % (5-12)
[2023-11-08 08:05] LABS: BLOOD GAS BASE EXCESS 13.2 mmol/L (-2.0-2.0); BLOOD GAS HCO3 39.9 mmol/L (22-26); BLOOD GAS PCO2 57.7 mmHg (35-45); BLOOD GAS PH 7.458 (7.35-7.45)
[2023-11-08] MEDS: MIDODRINE 5 MG TAB GT SCH ×3 (09:00→17:00)
[2023-11-08] MEDS: methylPREDNISolone SS 125 MG/2 ML VIAL IVP SCH ×2 (09:42→20:42)
[2023-11-08] MEDS: FAMOTIDINE 20 MG/2 ML VIAL IV SCH ×2 (09:42→20:43)
[2023-11-08] MEDS: FUROSEMIDE 20 MG/2 ML VIAL IVP SCH (09:42)
[2023-11-08] MEDS: CEFEPIME 1,000 MG in DEXTROSE 5% 50 ML IV SCH ×2 (09:43→20:11)
[2023-11-08] MEDS: FOAM DRESSING TP SCH (13:00)
[2023-11-08] MEDS: THERAHONEY GEL 42.5 GM TP SCH (13:00)
[2023-11-09] VITALS (12 sets, daily range): BP systolic 102–146; BP diastolic 75–98; PULSE 78–135; RESP 19–35; TEMP 96.6–98.5; O2SAT 90–99
[2023-11-09] MEDS: HYDRAGUARD CREAM TP SCH ×2 (01:30→15:22)
[2023-11-09] MEDS: ALBUTEROL SULFATE/IPRATROPIU 3 ML SOL IH SCH ×3 (01:45→19:08)
[2023-11-09 05:21] LABS: BASOPHILS % (AUTO) 0.1 % (0.0-2.0); HEMATOCRIT 40.8 % (36-48); LYMPHOCYTES # (AUTO) 0.5 K/uL (2.5-16.5); LYMPHOCYTES % (AUTO) 3.4 % (20.5-51.1); MEAN CORPUSCULAR HEMOGLOBIN 27 pg (27-31); MEAN CORPUSCULAR HGB CONC 32 g/dL (33-37); MEAN CORPUSCULAR VOLUME 85.7 fL (80-94); MONOCYTES # (AUTO) 0.3 K/uL (0.8-1.0); MONOCYTES % (AUTO) 2.5 % (1.7-9.3); NEUTROPHILS # (AUTO) 12.4 K/uL (1.8-7.7); PLATELET COUNT (AUTO) 299 K/uL (140-450); RED BLOOD CELL COUNT(AUTO) 4.76 MIL/uL (4.20-5.40); RED CELL DISTRIBUTION WIDTH 15.4 % (11.6-13.7); WHITE BLOOD COUNT (AUTO) 13.2 K/uL (4.8-10.8)
[2023-11-09] MEDS: metroNIDAZOLE 500 MG/NS PREMIX 100 ML IV SCH ×3 (05:29→22:11)
[2023-11-09 05:38] LABS: ANION GAP 6.8 (8-16); CALCIUM 8.8 mg/dL (8.5-10.1); CARBON DIOXIDE 38.2 mmol/L (21-32); CREATININE 1.2 mg/dL (0.6-1.3)
[2023-11-09 06:09] LABS: MAGNESIUM 2.8 mg/dL (1.8-2.4); PHOSPHORUS 4.5 mg/dL (2.5-4.9)
[2023-11-09] MEDS: MIDODRINE 5 MG TAB GT SCH ×3 (09:00→17:00)
[2023-11-09] MEDS: methylPREDNISolone SS 125 MG/2 ML VIAL IVP SCH ×2 (09:41→21:25)
[2023-11-09] MEDS: CEFEPIME 1,000 MG in DEXTROSE 5% 50 ML IV SCH ×2 (09:41→21:23)
[2023-11-09] MEDS: FAMOTIDINE 20 MG/2 ML VIAL IV SCH ×2 (09:42→21:24)
[2023-11-09] MEDS: LORazepam 0.5 MG TAB PO PRN ×2 (09:55→21:43)
[2023-11-09 11:51] LABS: BLOOD GAS PH 7.421 (7.35-7.45)
[2023-11-09 11:52] LABS: BLOOD GAS BASE EXCESS 13.2 mmol/L (-2.0-2.0); BLOOD GAS HCO3 40.6 mmol/L (22-26); BLOOD GAS PCO2 63.9 mmHg (35-45); BLOOD GAS PO2 79.5 mmHg (75-100)
[2023-11-09 11:53] LABS: BLOOD GAS O2 SAT% 96.1 % (92.0-98.5)
[2023-11-09] MEDS: FOAM DRESSING TP SCH (13:00)
[2023-11-09] MEDS: THERAHONEY GEL 42.5 GM TP SCH (13:00)
[2023-11-09] MEDS ORDERED: SODIUM POLYSTYRENE 15 GM/60 ML UDBTL PO SCH (16:15)
[2023-11-09] MEDS ORDERED: INSULIN REGULAR, HUMAN 100 UNIT/ML VIAL IVP SCH (16:30)
[2023-11-09] MEDS ORDERED: DEXTROSE 50% 50 ML SYR IVP SCH (17:00)
[2023-11-09] MEDS ORDERED: CALCIUM GLUC 1 GM/50 mL NS BAG 50 ML IV SCH (17:30)
[2023-11-09 20:58] LABS: ANION GAP 5.2 (8-16); CALCIUM 9.3 mg/dL (8.5-10.1); CARBON DIOXIDE 39.6 mmol/L (21-32); CREATININE 1.2 mg/dL (0.6-1.3); POTASSIUM 4.8 mmol/L (3.5-5.1)
[2023-11-10] VITALS (15 sets, daily range): BP systolic 93–100; BP diastolic 62–76; PULSE 84–134; RESP 20–39; TEMP 97.5–99; O2SAT 92–98
[2023-11-10] MEDS: ALBUTEROL SULFATE/IPRATROPIU 3 ML SOL IH SCH ×4 (00:07→19:38)
[2023-11-10] MEDS: HYDRAGUARD CREAM TP SCH ×2 (01:04→13:02)
[2023-11-10] MEDS: metroNIDAZOLE 500 MG/NS PREMIX 100 ML IV SCH ×3 (05:25→21:42)
[2023-11-10 05:46] LABS: BASOPHILS % (AUTO) 0.1 % (0.0-2.0); HEMATOCRIT 43.6 % (36-48); HEMOGLOBIN 13.8 g/dL (12.0-16.0); LYMPHOCYTES # (AUTO) 0.4 K/uL (2.5-16.5); LYMPHOCYTES % (AUTO) 2.3 % (20.5-51.1); MEAN CORPUSCULAR HEMOGLOBIN 27 pg (27-31); MEAN CORPUSCULAR HGB CONC 32 g/dL (33-37); MEAN CORPUSCULAR VOLUME 86.4 fL (80-94); MONOCYTES # (AUTO) 0.5 K/uL (0.8-1.0); MONOCYTES % (AUTO) 3.1 % (1.7-9.3); NEUTROPHILS # (AUTO) 15.3 K/uL (1.8-7.7); NEUTROPHILS % (AUTO) 94.5 % (42.2-75.2); PLATELET COUNT (AUTO) 361 K/uL (140-450); RED BLOOD CELL COUNT(AUTO) 5.05 MIL/uL (4.20-5.40); RED CELL DISTRIBUTION WIDTH 15.5 % (11.6-13.7); WHITE BLOOD COUNT (AUTO) 16.2 K/uL (4.8-10.8)
[2023-11-10 06:09] LABS: PHOSPHORUS 6.7 mg/dL (2.5-4.9)
[2023-11-10 06:50] LABS: ANION GAP 10.3 (8-16); CALCIUM 9.6 mg/dL (8.5-10.1); CARBON DIOXIDE 38.7 mmol/L (21-32); CREATININE 1.4 mg/dL (0.6-1.3)
[2023-11-10] MEDS: MIDODRINE 5 MG TAB GT SCH ×3 (08:32→17:22)
[2023-11-10] MEDS: CEFEPIME 1,000 MG in DEXTROSE 5% 50 ML IV SCH ×2 (08:32→20:56)
[2023-11-10] MEDS: FAMOTIDINE 20 MG/2 ML VIAL IV SCH ×2 (08:33→21:01)
[2023-11-10] MEDS: methylPREDNISolone SS 125 MG/2 ML VIAL IVP SCH ×2 (08:33→20:59)
[2023-11-10] MEDS: DEXTROSE 5% 1,000 ML IV SCH (12:58)
[2023-11-10] MEDS: FOAM DRESSING TP SCH (13:02)
[2023-11-10] MEDS: GAUZE TP SCH (13:02)
[2023-11-10] MEDS: THERAHONEY GEL 42.5 GM TP SCH (13:02)
[2023-11-10] MEDS: BLOOD GLUCOSE MONITORING 1 DEV DEV FS SCH ×2 (13:05→21:10)
[2023-11-10] MEDS: INSULIN LISPRO SLIDING SCALE 100 UNITS/ML VIAL SUBQ PRN ×3 (13:07→21:11)
[2023-11-10] MEDS: ACETAMINOPHEN 325 MG TAB PO PRN (17:21)
[2023-11-11] VITALS (15 sets, daily range): BP systolic 90–124; BP diastolic 67–83; PULSE 90–127; RESP 19–35; TEMP 97.5–99.1; O2SAT 94–99
[2023-11-11] MEDS: HYDRAGUARD CREAM TP SCH ×2 (01:04→13:00)
[2023-11-11] MEDS: GAUZE TP SCH ×2 (01:04→13:00)
[2023-11-11] MEDS: ALBUTEROL SULFATE/IPRATROPIU 3 ML SOL IH SCH ×4 (01:42→20:08)
[2023-11-11] MEDS: metroNIDAZOLE 500 MG/NS PREMIX 100 ML IV SCH ×3 (04:11→23:00)
[2023-11-11 06:26] LABS: ANION GAP 4.1 (8-16); CALCIUM 8.5 mg/dL (8.5-10.1); CARBON DIOXIDE 40.6 mmol/L (21-32); CREATININE 1.3 mg/dL (0.6-1.3); POTASSIUM 4.7 mmol/L (3.5-5.1)
[2023-11-11 06:30] LABS: BASOPHILS % (AUTO) 0.1 % (0.0-2.0); HEMATOCRIT 39.9 % (36-48); HEMOGLOBIN 12.3 g/dL (12.0-16.0); LYMPHOCYTES # (AUTO) 0.4 K/uL (2.5-16.5); LYMPHOCYTES % (AUTO) 2.6 % (20.5-51.1); MEAN CORPUSCULAR HEMOGLOBIN 27 pg (27-31); MEAN CORPUSCULAR HGB CONC 31 g/dL (33-37); MEAN CORPUSCULAR VOLUME 88.2 fL (80-94); MONOCYTES # (AUTO) 0.4 K/uL (0.8-1.0); MONOCYTES % (AUTO) 2.9 % (1.7-9.3); NEUTROPHILS # (AUTO) 14.1 K/uL (1.8-7.7); NEUTROPHILS % (AUTO) 94.4 % (42.2-75.2); PLATELET COUNT (AUTO) 273 K/uL (140-450); RED BLOOD CELL COUNT(AUTO) 4.52 MIL/uL (4.20-5.40); RED CELL DISTRIBUTION WIDTH 15.7 % (11.6-13.7)
[2023-11-11] MEDS: BLOOD GLUCOSE MONITORING 1 DEV DEV FS SCH ×4 (06:32→21:00)
[2023-11-11] MEDS: INSULIN LISPRO SLIDING SCALE 100 UNITS/ML VIAL SUBQ PRN ×4 (06:35→23:51)
[2023-11-11 06:57] LABS: MAGNESIUM 2.9 mg/dL (1.8-2.4); PHOSPHORUS 4.2 mg/dL (2.5-4.9)
[2023-11-11] MEDS: MIDODRINE 5 MG TAB GT SCH ×3 (09:40→17:39)
[2023-11-11] MEDS: methylPREDNISolone SS 125 MG/2 ML VIAL IVP SCH ×2 (09:40→23:01)
[2023-11-11] MEDS: FAMOTIDINE 20 MG/2 ML VIAL IV SCH ×2 (09:41→23:00)
[2023-11-11] MEDS: CEFEPIME 1,000 MG in DEXTROSE 5% 50 ML IV SCH ×2 (09:42→22:58)
[2023-11-11] MEDS: DEXTROSE 5% 1,000 ML IV SCH (09:58)
[2023-11-11] MEDS: THERAHONEY GEL 42.5 GM TP SCH (13:00)
[2023-11-11] MEDS: FOAM DRESSING TP SCH (13:00)
[2023-11-12] VITALS (15 sets, daily range): BP systolic 110–137; BP diastolic 74–85; PULSE 54–110; RESP 17–25; TEMP 96.3–98.6; O2SAT 96–100
[2023-11-12] MEDS: GAUZE TP SCH ×2 (01:00→17:15)
[2023-11-12] MEDS: HYDRAGUARD CREAM TP SCH ×2 (01:00→17:15)
[2023-11-12] MEDS: ALBUTEROL SULFATE/IPRATROPIU 3 ML SOL IH SCH ×4 (01:45→20:41)
[2023-11-12] MEDS: metroNIDAZOLE 500 MG/NS PREMIX 100 ML IV SCH ×3 (05:00→20:36)
[2023-11-12 05:38] LABS: BASOPHILS % (AUTO) 0.1 % (0.0-2.0); HEMATOCRIT 36.7 % (36-48); HEMOGLOBIN 11.6 g/dL (12.0-16.0); LYMPHOCYTES # (AUTO) 0.2 K/uL (2.5-16.5); LYMPHOCYTES % (AUTO) 1.8 % (20.5-51.1); MEAN CORPUSCULAR HEMOGLOBIN 27 pg (27-31); MEAN CORPUSCULAR HGB CONC 32 g/dL (33-37); MONOCYTES # (AUTO) 0.2 K/uL (0.8-1.0); MONOCYTES % (AUTO) 1.6 % (1.7-9.3); NEUTROPHILS # (AUTO) 12.8 K/uL (1.8-7.7); NEUTROPHILS % (AUTO) 96.5 % (42.2-75.2); PLATELET COUNT (AUTO) 276 K/uL (140-450); RED BLOOD CELL COUNT(AUTO) 4.27 MIL/uL (4.20-5.40); WHITE BLOOD COUNT (AUTO) 13.2 K/uL (4.8-10.8)
[2023-11-12 06:37] LABS: MAGNESIUM 2.6 mg/dL (1.8-2.4); PHOSPHORUS 3.8 mg/dL (2.5-4.9)
[2023-11-12 06:41] LABS: ANION GAP 6.5 (8-16); CALCIUM 8.3 mg/dL (8.5-10.1); CARBON DIOXIDE 38.2 mmol/L (21-32); POTASSIUM 4.7 mmol/L (3.5-5.1)
[2023-11-12 06:44] LABS: CREATININE 1.2 mg/dL (0.6-1.3)
[2023-11-12] MEDS: BLOOD GLUCOSE MONITORING 1 DEV DEV FS SCH ×4 (07:59→20:49)
[2023-11-12] MEDS: INSULIN LISPRO SLIDING SCALE 100 UNITS/ML VIAL SUBQ PRN ×4 (08:16→20:52)
[2023-11-12] MEDS: CEFEPIME 1,000 MG in DEXTROSE 5% 50 ML IV SCH ×2 (09:42→21:40)
[2023-11-12] MEDS: FAMOTIDINE 20 MG/2 ML VIAL IV SCH ×2 (09:45→20:49)
[2023-11-12] MEDS: methylPREDNISolone SS 125 MG/2 ML VIAL IVP SCH ×2 (09:45→20:49)
[2023-11-12] MEDS: MIDODRINE 5 MG TAB GT SCH ×3 (09:47→17:34)
[2023-11-12] MEDS: DEXTROSE 5% 1,000 ML IV SCH (10:00)
[2023-11-12] MEDS: ONDANSETRON 4 MG/2 ML VIAL IVP PRN (15:59)
[2023-11-12] MEDS: FOAM DRESSING TP SCH (17:15)
[2023-11-12] MEDS: THERAHONEY GEL 42.5 GM TP SCH (17:15)
[2023-11-12] MEDS: ANTIFUNGAL CLEAR OINTMENT TP SCH (17:15)
[2023-11-13] VITALS (16 sets, daily range): BP systolic 104–119; BP diastolic 61–81; PULSE 44–107; RESP 18–24; TEMP 96.9–98.5; O2SAT 94–100
[2023-11-13] MEDS: HYDRAGUARD CREAM TP SCH ×2 (01:19→12:54)
[2023-11-13] MEDS: ANTIFUNGAL CLEAR OINTMENT TP SCH ×2 (01:19→12:54)
[2023-11-13] MEDS: GAUZE TP SCH ×2 (01:20→12:54)
[2023-11-13] MEDS: ALBUTEROL SULFATE/IPRATROPIU 3 ML SOL IH SCH ×4 (01:39→19:51)
[2023-11-13] MEDS: metroNIDAZOLE 500 MG/NS PREMIX 100 ML IV SCH ×3 (04:44→21:16)
[2023-11-13 06:08] LABS: BASOPHILS % (AUTO) 0.1 % (0.0-2.0); HEMATOCRIT 31.2 % (36-48); HEMOGLOBIN 9.9 g/dL (12.0-16.0); LYMPHOCYTES # (AUTO) 0.2 K/uL (2.5-16.5); LYMPHOCYTES % (AUTO) 1.8 % (20.5-51.1); MEAN CORPUSCULAR HEMOGLOBIN 27 pg (27-31); MEAN CORPUSCULAR HGB CONC 32 g/dL (33-37); MEAN CORPUSCULAR VOLUME 85.6 fL (80-94); MONOCYTES # (AUTO) 0.1 K/uL (0.8-1.0); MONOCYTES % (AUTO) 1.2 % (1.7-9.3); NEUTROPHILS # (AUTO) 8.9 K/uL (1.8-7.7); NEUTROPHILS % (AUTO) 96.9 % (42.2-75.2); PLATELET COUNT (AUTO) 222 K/uL (140-450); RED BLOOD CELL COUNT(AUTO) 3.65 MIL/uL (4.20-5.40); RED CELL DISTRIBUTION WIDTH 15.4 % (11.6-13.7); WHITE BLOOD COUNT (AUTO) 9.2 K/uL (4.8-10.8)
[2023-11-13 06:24] LABS: ANION GAP 6.8 (8-16); CALCIUM 7.3 mg/dL (8.5-10.1); CARBON DIOXIDE 33.6 mmol/L (21-32); CREATININE 1.1 mg/dL (0.6-1.3); MAGNESIUM 2.2 mg/dL (1.8-2.4); PHOSPHORUS 4.8 mg/dL (2.5-4.9); POTASSIUM 4.4 mmol/L (3.5-5.1)
[2023-11-13] MEDS: BLOOD GLUCOSE MONITORING 1 DEV DEV FS SCH ×4 (06:31→21:00)
[2023-11-13] MEDS: INSULIN LISPRO SLIDING SCALE 100 UNITS/ML VIAL SUBQ PRN ×3 (06:32→17:39)
[2023-11-13] MEDS: MIDODRINE 5 MG TAB GT SCH ×3 (09:00→17:33)
[2023-11-13] MEDS: CEFEPIME 1,000 MG in DEXTROSE 5% 50 ML IV SCH ×2 (09:44→22:28)
[2023-11-13] MEDS: methylPREDNISolone SS 125 MG/2 ML VIAL IVP SCH ×2 (09:46→21:25)
[2023-11-13] MEDS: FAMOTIDINE 20 MG/2 ML VIAL IV SCH ×2 (09:46→21:18)
[2023-11-13] MEDS: DEXTROSE 5% 1,000 ML IV SCH (10:00)
[2023-11-13] MEDS: FOAM DRESSING TP SCH (12:54)
[2023-11-13] MEDS: THERAHONEY GEL 42.5 GM TP SCH (12:54)
[2023-11-13] MEDS: LORazepam 0.5 MG TAB PO PRN (21:17)
[2023-11-14] VITALS (15 sets, daily range): BP systolic 116–128; BP diastolic 73–86; PULSE 87–106; RESP 18–30; TEMP 96.4–97.8; O2SAT 93–99
[2023-11-14] MEDS: HYDRAGUARD CREAM TP SCH ×2 (01:00→12:39)
[2023-11-14] MEDS: ANTIFUNGAL CLEAR OINTMENT TP SCH ×2 (01:00→12:40)
[2023-11-14] MEDS: GAUZE TP SCH ×2 (01:00→12:39)
[2023-11-14] MEDS: ALBUTEROL SULFATE/IPRATROPIU 3 ML SOL IH SCH ×4 (01:16→18:52)
[2023-11-14] MEDS: BLOOD GLUCOSE MONITORING 1 DEV DEV FS SCH ×4 (07:23→20:21)
[2023-11-14] MEDS: INSULIN LISPRO SLIDING SCALE 100 UNITS/ML VIAL SUBQ PRN ×4 (07:23→20:30)
[2023-11-14] MEDS: MIDODRINE 5 MG TAB GT SCH ×3 (09:00→16:58)
[2023-11-14] MEDS: FAMOTIDINE 20 MG/2 ML VIAL IV SCH ×2 (09:29→20:28)
[2023-11-14] MEDS: methylPREDNISolone SS 125 MG/2 ML VIAL IVP SCH ×2 (09:30→20:26)
[2023-11-14] MEDS: DEXTROSE 5% 1,000 ML IV SCH ×2 (09:41→23:27)
[2023-11-14] MEDS: THERAHONEY GEL 42.5 GM TP SCH (12:39)
[2023-11-14] MEDS: FOAM DRESSING TP SCH (12:39)
[2023-11-14] MEDS: ONDANSETRON 4 MG/2 ML VIAL IVP PRN (13:12)
[2023-11-14] MEDS ORDERED: LORazepam 2 MG/ML VIAL IM/IVP PRN (15:45)
[2023-11-14] MEDS: LORazepam 1 MG TAB GT PRN (16:40)
[2023-11-15] VITALS (11 sets, daily range): BP systolic 108–127; BP diastolic 60–80; PULSE 74–104; RESP 17–25; TEMP 96.5–98.1; O2SAT 92–100
[2023-11-15] MEDS: ALBUTEROL SULFATE/IPRATROPIU 3 ML SOL IH SCH ×4 (01:23→20:26)
[2023-11-15] MEDS: ANTIFUNGAL CLEAR OINTMENT TP SCH ×2 (01:25→13:20)
[2023-11-15] MEDS: GAUZE TP SCH ×2 (01:26→13:20)
[2023-11-15] MEDS: HYDRAGUARD CREAM TP SCH ×2 (01:31→13:20)
[2023-11-15] MEDS: BLOOD GLUCOSE MONITORING 1 DEV DEV FS SCH (06:31)
[2023-11-15] MEDS: INSULIN LISPRO SLIDING SCALE 100 UNITS/ML VIAL SUBQ PRN (06:33)
[2023-11-15] MEDS: FAMOTIDINE 20 MG/2 ML VIAL IV SCH (09:40)
[2023-11-15] MEDS: methylPREDNISolone SS 125 MG/2 ML VIAL IVP SCH (09:41)
[2023-11-15] MEDS: MIDODRINE 5 MG TAB GT SCH (09:41)
[2023-11-15] MEDS: LORazepam 1 MG TAB GT PRN (10:17)
[2023-11-15] MEDS: MORPHINE SULFATE 50 MG in NACL 0.9% 45 ML IV PRN (13:07)
[2023-11-15] MEDS: FOAM DRESSING TP SCH (13:20)
[2023-11-15] MEDS: THERAHONEY GEL 42.5 GM TP SCH (13:20)
[2023-11-16] VITALS (8 sets, daily range): BP systolic 77–131; BP diastolic 29–82; PULSE 93–114; RESP 8–22; TEMP 96.7–98.6; O2SAT 95–99
[2023-11-16] MEDS: ALBUTEROL SULFATE/IPRATROPIU 3 ML SOL IH SCH ×2 (00:14→07:56)
[2023-11-16] MEDS: HYDRAGUARD CREAM TP SCH ×2 (01:01→16:22)
[2023-11-16] MEDS: ANTIFUNGAL CLEAR OINTMENT TP SCH ×2 (01:03→16:22)
[2023-11-16] MEDS: GAUZE TP SCH ×2 (01:04→16:22)
[2023-11-16] MEDS: MORPHINE SULFATE 50 MG in NACL 0.9% 45 ML IV PRN (06:45)
[2023-11-16] MEDS: THERAHONEY GEL 42.5 GM TP SCH (16:21)
[2023-11-16] MEDS: FOAM DRESSING TP SCH (16:22)
[2023-11-16] MEDS: MORPHINE SULFATE 100 MG in NACL 0.9% 90 ML IV PRN (16:27)
[2023-11-17] MEDS: HYDRAGUARD CREAM TP SCH ×2 (01:07→13:00)
[2023-11-17] MEDS: GAUZE TP SCH ×2 (01:07→13:00)
[2023-11-17 04:00] VITALS: BP 71/41; PULSE 101; RESP 14; TEMP 97.7; O2SAT 95
[2023-11-17] MEDS: MORPHINE SULFATE 100 MG in NACL 0.9% 90 ML IV PRN (05:29)
[2023-11-17 08:05] VITALS: O2SAT 97
[2023-11-17 09:31] VITALS: PULSE 78; RESP 14; O2SAT 99
[2023-11-17 09:32] VITALS: PULSE 108; RESP 16; O2SAT 99
[2023-11-17 09:33] VITALS: BP 66/41; PULSE 78; RESP 16; TEMP 99.2; O2SAT 99
[2023-11-17] MEDS: FOAM DRESSING TP SCH (13:00)
[2023-11-17] MEDS: THERAHONEY GEL 42.5 GM TP SCH (13:00)
== END 2023-11-17 15:55 | DRG 720 ==
LOC: MED 14:52 → MMU 23:05
PROVIDERS: ADMIT Internal Medicine; ATTEND Internal Medicine
PROC: 5A09357 Assistance with Respiratory Ventilation, Less than 24 Consecutive Hours, Continuous Positive Airway Pressure (ICD-10-PCS; principal; 2023-10-27)
PROC: 5A09357 Assistance with Respiratory Ventilation, Less than 24 Consecutive Hours, Continuous Positive Airway Pressure (ICD-10-PCS; 2023-10-28)
PROC: 5A09357 Assistance with Respiratory Ventilation, Less than 24 Consecutive Hours, Continuous Positive Airway Pressure (ICD-10-PCS; 2023-10-29)
PROC: 5A09557 Assistance with Respiratory Ventilation, Greater than 96 Consecutive Hours, Continuous Positive Airway Pressure (ICD-10-PCS; 2023-10-30)
PROC: 5A0935A Assistance with Respiratory Ventilation, Less than 24 Consecutive Hours, High Flow/Velocity Cannula (ICD-10-PCS; 2023-11-01)
PROC: 5A0935A Assistance with Respiratory Ventilation, Less than 24 Consecutive Hours, High Flow/Velocity Cannula (ICD-10-PCS; 2023-11-09)
PROC: 5A09557 Assistance with Respiratory Ventilation, Greater than 96 Consecutive Hours, Continuous Positive Airway Pressure (ICD-10-PCS; 2023-11-10)
PROC: 02HV33Z Insertion of Infusion Device into Superior Vena Cava, Percutaneous Approach (ICD-10-PCS; 2023-11-10)
DX: A41.9 Sepsis, unspecified organism (principal); J96.21 Acute and chronic respiratory failure with hypoxia; J69.0 Pneumonitis due to inhalation of food and vomit; G12.21 Amyotrophic lateral sclerosis; G82.50 Quadriplegia, unspecified; J96.22 Acute and chronic respiratory failure with hypercapnia; R73.9 Hyperglycemia, unspecified; E43 Unspecified severe protein-calorie malnutrition; E87.6 Hypokalemia; R13.10 Dysphagia, unspecified; E87.3 Alkalosis; E87.1 Hypo-osmolality and hyponatremia; E87.5 Hyperkalemia; Z66 Do not resuscitate; Z20.822 Contact with and (suspected) exposure to COVID-19; R65.20 Severe sepsis without septic shock; Z74.01 Bed confinement status; Z79.899 Other long term (current) drug therapy; Z89.511 Acquired absence of right leg below knee; Z89.512 Acquired absence of left leg below knee; Z68.30 Body mass index [BMI] 30.0-30.9, adult
CPT/HCPCS: 36415; 36600; 71045; 71275; 80048; 80053; 80202; 81003; 82550; 82553; 82803; 82948; 83036; 83605; 83735; 83880; 84100; 84132; 84484; 85025; 85379; 87040; 87081; 87086; 92526; 93005; 94640; 94660; 94664; 96365; 96375; 97112; 97163-GP; 97530; 99291; 99292; J0610; J0692; J1120; J1644; J1940; J2001; J2060; J2270; J2405; J2543; J2930; J3370; J3480; J3490; J7030; J7060; J7613; J7644; Q0092; Q9967